=== PATIENT | female | born 1955 | race Caucasian/White ===

== ENCOUNTER 2023-04-01 10:07 | Outpatient (AMB) | payer MEDICARE, SELFPAY ==
--- NOTE | 2023-04-01 10:26 | MHC.OFFVIS ---
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 HPI: This 67-year-old female is having pain predominantly down her right buttock to the outside of her thigh with walking. A shopping cart relieves the symptoms or sitting down. Standing is tolerated better than walking. The left leg can have the similar symptoms. Physical therapy and home exercises have been helping her symptoms. She denies weakness PMH: Hypertension, removal squamous cell carcinoma of the skin Medications: Metoprolol, losartan, atorvastatin, aspirin, amlodipine, omeprazole, labetalol, gabapentin, indapamide, multivitamins Allergies: Lisinopril Social history: Retired. Nonsmoker Physical Exam: Pleasant female not in obvious agony. Neurological exam is intact for motor sensation and reflexes. Straight leg raise is negative bilaterally. Radiological Studies: MRI done at [facility] on 02/09/2023 shows a mild L3-4 spondylolisthesis and moderate to severe L3-4 and L4-5 central spinal stenosis. Dynamic lumbar x-rays today show no signs of instability Impression/Plan: This patient is suffering from neurogenic claudication due to spinal stenosis L3-4 and L4-5. Patient states that her symptoms are not severe enough to undergo a right L3-4 and L4-5 laminotomy. She will return to my clinic if her symptoms progress to a point that she wants to have surgery. Thank you for allowing me to participate in your patients care. total time spent was 50 minutes in counseling ,coordination of plan, personal review of imaging, surgical decision making and subsequent plan Prabhu Dsouza MD, PhD Spine Fellowship Trained Neurosurgeon Director, [facility] Orders: Orders XR lumbar spine 4V min Today M48.062 - Spinal stenosis, lumbar region with neurogenic claudication Coding Level of Care Code New Pt Level 4 (70011) Diagnoses Lumbar stenosis with neurogenic claudication M48.062
== END 2023-04-01 11:25 | disposition home or self-care (01) ==
PROVIDERS: PCP Internal Medicine; Visit Provider Neurological Surgery
DX: M48.062 Spinal stenosis, lumbar region with neurogenic claudication (principal)
CPT/HCPCS: 99204

== ENCOUNTER 2023-04-01 10:07 | Outpatient (REF) | payer MEDICARE, SELFPAY ==
--- NOTE | ~2023-04-01 | XR_ITS ---
EXAMINATION: XR LUMBOSACRAL SPINE WITH OBLIQUES CLINICAL INFORMATION: Lumbar spinal stenosis with neurogenic claudication. COMPARISON: None available. TECHNIQUE: AP and lateral (neutral, flexion and extension) views of the lumbosacral spine are submitted. FINDINGS: There is bony demineralization. There is a mild to moderate lumbar dextroscoliosis. There is moderate disc space narrowing at L1-L2 and L3-L4, with grade 1 anterolistheses. The remaining disc spaces are relatively well-maintained. No acute fracture or spondylolisthesis is seen. There is multi-level thoracolumbar spondylosis and facet arthropathy. There are aortoiliac atherosclerotic calcifications. XR/XR lumbar spine 4V min IMPRESSION: 1. There is moderate degenerative disc disease at L1-L2 and L3-L4. 2. There is multi-level thoracolumbar spondylosis and facet arthropathy. 3. There is a mild to moderate lumbar dextroscoliosis.
== END 2023-04-01 10:08 | disposition home or self-care (01) ==
LOC: HO.HOSX 10:07
PROVIDERS: PCP Internal Medicine; Visit Provider Neurological Surgery
DX: M48.062 Spinal stenosis, lumbar region with neurogenic claudication (principal)
CPT/HCPCS: 72110; 99202

== ENCOUNTER 2025-01-25 14:34 | Outpatient (AMB) | payer MEDICARE, SELFPAY ==
--- NOTE | 2025-01-25 14:51 | A.SPINEOV_ITS ---
Intake Visit Reasons: spinal stenosis/getting worse Intake Note: Mrs. Lloyd is here today c/o low back pain getting worse. 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 She had physical therapy in the past and is still doing home exercises. The patient was last seen in March of 2023 during which she was given the option to undergo a right L3-4 and L4-5 lumbar decompression, to address symptoms of neurogenic claudication, which have been more on the right side. Approximately 6 months ago, she developed a radiating, shooting pain down her left leg to the outside of her thigh and outside of her ankle. She had 2 epidural steroid injections which gave temporary relief. The pain is worse at night when she lays down or with s itting. Walking and standing produces the bilateral discomfort in her legs with the right side more affected than the left side. She brings in a new MRI of 09/15/2024 obtained at [facility] that shows again the [id number] L3-4 and L4-5 spinal stenosis and in addition a new L4-5 extraforaminal disc herniation on the left-sided compresses the exiting L4 nerve root. We had on extensive discussion on surgical treatment. Should we only do the lumbar decompression or also remove the extra foraminal disc herniation in his same setting? Clinically, she is suffering from neurogenic claudication from the spinal stenosis but also from a left lumbar radiculopathy, which most likely is related to the extra foraminal disc herniation. We decided to address both in his same setting. I scheduled her for an L3-4 L4-5 lumbar decompression, right-sided approach and removal of a left L4-5 extraforaminal disc herniation. I described the procedure, possible complications and expected outcome. She wants to proceed. She will get a preoperative clearance from her primary care physician, which will hopefully result in a telephone screening by our anesthesiology team.. She is tentatively scheduled for 03/28/2025. I spent 40 minutes in his consult to review imaging and discuss plan of care. 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
--- OUTSIDE RECORDS SUMMARY | 2025-01-25 17:31 | XMS_ITS | Clinical Summary ---
Author Organization 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 Name Role Phone Unavailable Primary Care Provider Unavailabl e Social History Tobacco Use Types Packs/Day Years Used Date Smoking Tobacco: Never Assessed Sex and Gender Information Value Date Recorded Sex Assigned at Not on file Gender Identity Not on file Sexual Orientation Not on file Plan of Treatment Health Maintenance Due Date Last Done Comments Hepatitis C Screening 1955 COVID-19 Vaccine (#1) 03[birth year]11/1955 Depression Screening 1966 Preventative Health Evaluation 1972 DTap / Tdap / Td (1 - Tdap) 1973 Colon Cancer Screening (Colonoscopy) 09/09/1999 Breast Cancer Screening (Mammogram) 2004 Shingrix-Zoster Vaccine (1 of 2) 2004 Fall Risk Assessment 09/09/2019 Osteoporosis Screening (DEXA Scan) 09/09/2019 Pneumococcal Vaccine (1 of 1 - PCV) 09/09/2019 Influenza Vaccine (#1) 2024 RSV Adult > 60+ Yrs or Pregn ant (1 - 1-dose 75+ series) 2029 Hepatitis B Vaccines Aged Out No long er eligible based on patient's age to complete this topic RSV Ped < 20 months Aged Out No longe r eligible based on patient's age to complete this topic
== END 2025-01-25 15:49 | disposition home or self-care (01) ==
LOC: HO.HNS 14:34
PROVIDERS: PCP Internal Medicine; Visit Provider Neurological Surgery
DX: M48.062 Spinal stenosis, lumbar region with neurogenic claudication (principal); M51.16 Intervertebral disc disorders with radiculopathy, lumbar region
CPT/HCPCS: 99215

== ENCOUNTER → 2025-01-25 14:34 | Outpatient (BNVA) | payer MEDICARE, SELFPAY | PROVIDERS: PCP Internal Medicine; Visit Provider Neurological Surgery | DX: M48.062 Spinal stenosis, lumbar region with neurogenic claudication (principal); M51.15 Intervertebral disc disorders with radiculopathy, thoracolumbar region | CPT/HCPCS: 99212 ==